=== PATIENT | male | born 1980 | race Two or more races ===

== ENCOUNTER 2019-11-25 22:36 | Emergency (ER) | payer SELFPAY ==
[~2019-11-25] VITALS: Ht 177.8 cm; Wt 72.6 kg
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
--- NOTE | 2019-11-25 23:35 | NUR ---
AT BEDSIDE FOR EVAL
[2019-11-25] MEDS ORDERED: IBUPROFEN 400 MG TABLET ONE (23:48)
--- NOTE | 2019-11-25 23:50 | NUR ---
XRAY AT BEDSIDE
--- NOTE | 2019-11-25 23:59 | NUR ---
PT SENT TO CT
[2019-11-26] MEDS ORDERED: IBUPROFEN 400 MG TABLET PO ONE
--- NOTE | 2019-11-26 01:02 | NUR ---
Patient discharged to home in stable condition. Written and verbal after care instructions given. Patient verbalizes understanding of instruction.
[2019-11-26 01:03] VITALS: BP 118/68
== END 2019-11-26 01:03 | disposition home or self-care (01) ==
LOC: ER 22:36
DX: S63.592A Other specified sprain of left wrist, initial encounter (principal); S33.5XXA Sprain of ligaments of lumbar spine, initial encounter; S09.8XXA Other specified injuries of head, initial encounter; R51 Headache; Y08.89XA Assault by other specified means, initial encounter; Y93.89 Activity, other specified; Y92.89 Other specified places as the place of occurrence of the external cause; Y99.8 Other external cause status
CPT/HCPCS: 70450-TC; 72100-TC; 73110